=== PATIENT | male | born 1990 | race Caucasian/White ===

== ENCOUNTER 2022-04-17 14:04 | Emergency (ER) | payer SELFPAY ==
[~2022-04-17] VITALS: Ht 177.8 cm; Wt 86.0 kg
[2022-04-17 14:11] VITALS: BP 141/93
[2022-04-17 15:30] LABS: BASOPHILS % 0.3 % (0.0-2.0); EOSINOPHILS % 0.1 % (0.0-5.0); HEMATOCRIT. 43.4 % (42.0-52.0); HEMOGLOBIN. 14.4 g/dL (14.0-18.0); LYMPHOCYTES % 8.4 % (20.0-50.0); MEAN CORPUSCULAR HEMOGLOBIN 30.7 pg (28.0-32.0); MEAN CORPUSCULAR VOLUME 92.6 fL (80.0-94.0); MEAN PLATELET VOLUME 8.3 fl (7.4-10.4); MONOCYTES % 7.2 % (2.0-8.0); PLATELET 292 x1000/uL (130-400); RED BLOOD CELL COUNT 4.68 mill/uL (4.7-6.1); RED CELL DISTRIBUTION WIDTH 13.1 % (11.6-14.6)
[2022-04-17 15:35] LABS: CHLORIDE 105 mEq/L (98-107)
[2022-04-17] MEDS ORDERED: CEPH500T PO (17:55)
== END 2022-04-17 18:06 | disposition home or self-care (01) ==
LOC: ER 14:04
DX: L03.211 Cellulitis of face (principal)
CPT/HCPCS: 36415; 70487; 80048; 85025; 99285

== ENCOUNTER 2023-07-22 14:59 | Emergency (ER) | payer SELFPAY ==
[~2023-07-22] VITALS: Ht 175.3 cm; Wt 86.0 kg
[~2023-07-22 14:59] MED LIST: CEPH500T PO
[2023-07-22 15:06] VITALS: O2SAT 100
[2023-07-22 15:20] VITALS: TEMP 98.6
[2023-07-22 15:35] VITALS: BP 135/80; PULSE 80; RESP 20
[2023-07-22] MEDS: ONDANSETRON HCL 4MG/2ML INJ IV STA (15:35)
[2023-07-22] MEDS: KETOROLAC 30MG/ML VIAL IV STA (15:35)
[2023-07-22] MEDS: SODIUM CHLORIDE 0.9% 1,000 ML IV ONE (15:36)
[2023-07-22 15:59] LABS: BASOPHILS % 0.3 % (0.0-2.0); EOSINOPHILS % 0.8 % (0.0-5.0); HEMATOCRIT. 44.5 % (42.0-52.0); HEMOGLOBIN. 14.7 g/dL (14.0-18.0); LYMPHOCYTES % 19.5 % (20.0-50.0); MEAN CORPUSCULAR HEMOGLOBIN 31.3 pg (28.0-32.0); MEAN CORPUSCULAR HGB CONC 33.1 g/dL (31.0-37.0); MEAN CORPUSCULAR VOLUME 94.5 fL (80.0-94.0); MEAN PLATELET VOLUME 8.5 fl (7.4-10.4); MONOCYTES % 7.9 % (2.0-8.0); NEUTROPHILS % 71.5 % (40.0-76.0); PLATELET 269 x1000/uL (130-400); RED BLOOD CELL COUNT 4.71 mill/uL (4.7-6.1); RED CELL DISTRIBUTION WIDTH 13.9 % (11.6-14.6); WHITE BLOOD COUNT 9.4 x1000/uL (4.5-11.0)
[2023-07-22 17:01] LABS: CHLORIDE 105 mEq/L (98-107); POTASSIUM 4.3 mEq/L (3.5-5.1); SODIUM 137 mEq/L (136-145)
[2023-07-22 17:02] LABS: CARBON DIOXIDE 26 mEq/L (21-32)
[2023-07-22 17:07] LABS: CREATININE 0.8 mg/dL (0.6-1.3); GLUCOSE 73 mg/dL (70-105); UREA NITROGEN BLOOD 8 mg/dL (9-23)
[2023-07-22 17:09] LABS: ALANINE AMINOTRANSFERASE 56 IU/L (10-49); ALBUMIN 4.6 g/dL (3.2-4.8); ASPARTATE AMINOTRANSFERASE 32 IU/L (<34)
[2023-07-22 17:10] LABS: BILIRUBIN TOTAL 0.6 mg/dL (0.1-1.0); PROTEIN TOTAL 7.7 g/dL (6.0-8.3)
[2023-07-22 17:13] LABS: TROPONIN I HIGH SENSITIVITY < 4 ng/L (3.0-53)
[2023-07-22 17:24] LABS: CLARITY URINE CLEAR (CLEAR); COLOR URINE YELLOW (YELLOW); GLUCOSE URINE NEGATIVE (NEGATIVE); KETONES URINE NEGATIVE (NEGATIVE); LEUKOCYTE ESTERASE URINE NEGATIVE (NEGATIVE); NITRITE URINE NEGATIVE (NEGATIVE); OCCULT BLOOD URINE NEGATIVE (NEGATIVE); PH URINE 7.5 (4.5-8.0); PROTEIN URINE NEGATIVE (NEGATIVE); SPECIFIC GRAVITY URINE 1.015 (1.005-1.030); UROBILINOGEN URINE 0.2 E.U./dL (0.2-1.0)
[2023-07-22] MEDS ORDERED: POLY17PO3 MT (17:48)
[2023-07-22] MEDS ORDERED: IBUP-2029 MT (17:49)
== END 2023-07-22 18:23 | disposition home or self-care (01) ==
LOC: ER 14:59
DX: K59.00 Constipation, unspecified (principal); R07.89 Other chest pain
CPT/HCPCS: 80053; 81003; 85025; 84484; 36415; 71045; 74176; 93005; 96361; 96374; 96375; 99285; J1885; J2405; J7030; Z7610 ×2

== ENCOUNTER 2023-08-03 09:21 | Emergency (ER) | payer MEDICAID ==
[~2023-08-03] VITALS: Ht 175.3 cm; Wt 86.2 kg
[~2023-08-03 09:21] MED LIST changes: +IBUP-2029 MT; +POLY17PO3 MT
[2023-08-03 09:32] VITALS: TEMP 98.7; O2SAT 98
[2023-08-03] MEDS: KETOROLAC 15MG/ML VIAL IM ONE (11:10)
[2023-08-03] MEDS ORDERED: CEPH500T MT (11:34)
[2023-08-03 14:17] VITALS: BP 145/90; PULSE 82; RESP 17
== END 2023-08-03 14:19 | disposition home or self-care (01) ==
LOC: ER 09:21
DX: L03.113 Cellulitis of right upper limb (principal)
CPT/HCPCS: 99285; 93971; 73130; 96372; J1885